=== PATIENT | female | born 1965 | race Caucasian/White ===

== ENCOUNTER 2017-07-17 21:54 | Emergency (ER) | payer OTHER ==
[~2017-07-17] VITALS: Ht 167.6 cm; Wt 52.5 kg
[~2017-07-17 21:54] MED LIST: ALEVE220 M1 PO; GLUCOPHAGE XR1000 MG PO; Humalog SQ; LANTUS 10100 UNITS/ SC; LANTUS100 UNIT/1 SQ; NEXIUM20 MG PO; OXYCODONE-APAP1 EACH PO; PERCOCET 5/31 TABLET PO; REGLAN10 MG PO
[2017-07-17] MEDS ORDERED: MEDROL DOSEPAK4 MG PO (22:18)
[2017-07-17] MEDS ORDERED: FLEXERIL10 MG PO (22:18)
[2017-07-17 22:40] VITALS: BP 139/100
== END 2017-07-17 22:41 | disposition home or self-care (01) ==
LOC: EME 21:54
DX: M54.9 Dorsalgia, unspecified (principal); G89.29 Other chronic pain; X50.0XXA Overexertion from strenuous movement or load, initial encounter; E11.9 Type 2 diabetes mellitus without complications; Z79.4 Long term (current) use of insulin; Z79.891 Long term (current) use of opiate analgesic; Z88.8 Allergy status to other drugs, medicaments and biological substances; F17.200 Nicotine dependence, unspecified, uncomplicated
CPT/HCPCS: 99281; 99283; J1100